=== PATIENT | female | born 1970 | race Caucasian/White ===

== ENCOUNTER 2018-08-31 09:02 | Emergency (ER) | payer SELFPAY ==
[2018-08-31] MEDS ORDERED: ONDANSETRON HCL IV 4 MG/2 ML VIAL IV ONE (09:36)
[2018-08-31] MEDS ORDERED: SODIUM CHLORIDE 0.9% 500 ML IV ONE (09:36)
--- NOTE | 2018-08-31 09:46 | Emergency Department Record ---
History of Present Illness - General Chief Complaint: Abdominal Pain Stated Complaint: CYST ON OVARIES Time Seen by Provider: 08/31/18 09:31 Source: Patient Mode of Arrival: Ambulatory Limitations: No limitations - History of Present Illness Initial Comments: The patient is here due to R lower AP for the last 8 hours. She states the onset was sudden when she was lying in bed. The patient states she has a long hx of similar issues due to ovarian cysts and this pain feels the same. She states she has needed to stay in the hospital overnight for it in the past. She also states she normally gets the pain just prior to her menses and she did start it yesterday but it seems to have stopped. The patient's only abdominal surgery is a BTL. Additionally she denies any vaginal discharge, dysuria, anorexia, or vomiting and is not sexually active. MD Complaint: Abdominal pain Onset/Timin -: Hour(s) Location: RLQ Radiation: None Migration to: No migration Severity: Moderate Severity scale (1-10): 7 Quality: Aching Consistency: Constant Improves With: Nothing Worsens With: Nothing - Related Data LMP (females 10-50): Current Patient : No Previous Rx's Medication Instructions Recorded Naproxen [Naprosyn] 500 mg PO BID #14 tablet. 08/31/18 Allergies Allergy/AdvReac Type Severity Reaction Status Date / Time diazepam [From Valium] AdvReac Severe cardiac Verified 08/31/18 11:26 arrest Travel Screening - Travel/Exposure Within Last 30 Days Have you traveled within the last 30 days?: No Review of Systems Constitutional: Denies: Chills, Fever Eyes: Denies: Eye discharge ENT: Denies: Congestion Respiratory: Denies: Cough, Dyspnea Past Medical History - SOCIAL HISTORY Smoking Status: Light tobacco smoker (<10/day) Alcohol Use: Occasional Drug Use: None - RESPIRATORY Hx Respiratory Disorders: No - CARDIOVASCULAR Hx Cardio Disorders: No - NEURO Hx Neuro Disorders: No - GI Hx GI Disorders: No - Hx Genitourinary Disorders: No Comment:: ovarian cysts - ENDOCRINE Hx Endocrine Disorders: No - MUSCULOSKELETAL Hx Musculoskeletal Disorders: No - PSYCH Hx Psych Problems: No - HEMATOLOGY/ONCOLOGY Hx Hematology/Oncology Disorders: No Family Medical History Any Significant Family History?: No Physical Exam - General General Appearance: Alert, Oriented x3, Cooperative, No acute distress - Head Head exam: Atraumatic, Normocephalic, Normal inspection - Eye Eye exam: Normal appearance, PERRL, EOMI - Neck Neck exam: Normal inspection, Full ROM. negative: Tenderness - Respiratory Respiratory exam: Normal lung sounds bilaterally. negative: Respiratory distress - Cardiovascular Cardiovascular Exam: Regular rate, Normal rhythm, Normal heart sounds - GI/Abdominal GI/Abdominal exam: Soft, Tenderness (There is mild to mod RLQ tenderness near the inguinal ligament.). negative: Distended, Rebound, Rigid - Extremities Extremities exam: Normal inspection, Full ROM, Normal capillary refill. negative: Tenderness Image of Full Body: 1 - Area of pain and tenderness. - Neurological Neurological exam: Alert. negative: Motor sensory deficit - Psychiatric Psychiatric exam: negative: Anxious Course Vital Signs 08/31/18 09:23 Temperature 97.8 F Pulse Rate 100 H Respiratory 20 Rate Blood Pressure 139/71 Pulse Ox 98 - Reevaluation(s) Reevaluation #1: The patient is doing better at this time. She is sleeping presently with no complaints of pain. We are waiting on her US report at this time. 08/31/18 12:19 Reevaluation #2: The patient is doing a lot better at this time. Her pain is now 90% resolved and she denies any nausea or back pain. I did explain to her that the lab tests were WNL's and the US did not demonstrate any acute pelvic pathology. She is to take naprosyn for pain at home and see her PCP later this week for recheck. 08/31/18 12:55 Medical Decision Making - Data Complexity MDM Data: Labs Ordered and/or Reviewed, X-Ray Ordered and/or Reviewed - Lab Data Result diagrams: 08/31/18 09:45 08/31/18 09:45 - Radiology Data Radiology results: Report reviewed (Pelvic US: Neg for torsion or free fluid. Dominant ovarian follicle L ovary, O/W neg.) Disposition Disposition: Discharge Clinical Impression: Pelvic pain Disposition: Home, Self-Care Condition: (2) Stable Instructions: Pelvic Pain in Women (ED) Additional Instructions: Please take the Naprosyn for pain and see your family doctor later this week for recheck. Please return to the ER tonight or in the morning for any worsening pain, fever, or vomiting. Prescriptions: Naproxen [Naprosyn] 500 mg PO BID #14 tablet.dr Forms: Patient Portal Access Time of Disposition: 12:58 Quality - Quality Measures Quality Measures: N/A - Blood Pressure Screening View Details: Yes Does Patient Have Any of the Following: No Blood Pressure Classification: Pre-Hypertensive BP Reading Systolic Measurement: 139 Diastolic Measurement: 71 Screening for High Blood Pressure: < Pre-Hypertensive BP, F/U Documented > [ G8950] Pre-Hypertensive Follow-up Interventions: Referral to alternative/primary care provider.
[2018-08-31 09:54] LABS: BASO % 0.5 % (0-6); EOS % 1.3 % (0-6); GRAN % 69.5 % (47-80); HEMATOCRIT 38.8 % (35.0-47.0); HEMOGLOBIN 12.4 gm/dl (11.6-16.0); LYMPH % 19.8 % (16-45); MEAN CELL VOLUME 95.1 fl (81-97); MEAN CORPUSCULAR HEMOGLOBIN 30.4 pg (27-33); MEAN PLATELET VOLUME 10.7 fl (7.4-10.4); MONO % 8.9 % (0-9); PLATELET COUNT 252 K/uL (130-400); RED BLOOD COUNT 4.08 M/uL (3.80-5.40); WHITE BLOOD COUNT W/O DIFF 10.8 K/uL (4.2-12.2)
[2018-08-31 09:55] LABS: URINE BILIRUBIN NEGATIVE (NEGATIVE); URINE BLOOD TRACE-I (NEGATIVE); URINE GLUCOSE (UA) NEGATIVE (NEGATIVE); URINE KETONE NEGATIVE (NEGATIVE); URINE LEUKOCYTE ESTERASE NEGATIVE (NEGATIVE); URINE NITRITE NEGATIVE (NEGATIVE); URINE PROTEIN NEGATIVE (NEGATIVE); URINE UROBILINOGEN 0.2 E.U./dL (0.20 - 1.00)
[2018-08-31 09:57] LABS: HCG,QUALITATIVE URINE NEGATIVE (NEGATIVE); URINE APPEARANCE CLEAR; URINE COLOR YELLOW
[2018-08-31] MEDS ORDERED: KETOROLAC 30 MG/ML VIAL IVP ONE (10:00)
[2018-08-31 10:03] LABS: BLOOD UREA NITROGEN 12 mg/dL (6-20)
[2018-08-31 10:04] LABS: CREATININE 0.8 mg/dL (0.5-0.9); EST GLOMERULAR FILTRATION RATE > 60 mL/min; URINE BACTERIA 2+; URINE EPITHELIAL CELLS >50 (FEW); URINE MUCUS HEAVY; URINE RBC 0 - 2 (NONE SEEN); URINE WBC 0 - 2 (0-2/hpf)
[2018-08-31 10:06] LABS: GLUCOSE,RANDOM 116 mg/dL (74-109)
[2018-08-31] MEDS ORDERED: HYDROMORPHONE HCL 2 MG/ML VIAL IVP ONE (11:21)
[2018-08-31] MEDS ORDERED: ONDANSETRON HCL IV 4 MG/2 ML VIAL IVP ONE ×2 (11:28→15:01)
--- NOTE | 2018-08-31 15:12 | Emergency Department Record ---
History of Present Illness - General Chief Complaint: Abdominal Pain Stated Complaint: CYST ON OVARIES Time Seen by Provider: 08/31/18 09:31 Source: Patient Mode of Arrival: Ambulatory Limitations: No limitations - History of Present Illness MD Complaint: Abdominal pain Onset/Timin -: Hour(s) Location: RLQ Radiation: None Migration to: No migration Severity: Moderate Severity scale (1-10): 7 Quality: Aching Consistency: Constant Improves With: Nothing Worsens With: Nothing - Related Data LMP (females 10-50): Current Patient : No Previous Rx's Medication Instructions Recorded Naproxen [Naprosyn] 500 mg PO BID #14 tablet.dr 08/31/18 Ondansetron [Zofran Odt] 4 mg SL .Q4-6H PRN #12 tab.rapdis 08/31/18 Allergies Allergy/AdvReac Type Severity Reaction Status Date / Time diazepam [From Valium] AdvReac Severe cardiac Verified 08/31/18 11:26 arrest Travel Screening - Travel/Exposure Within Last 30 Days Have you traveled within the last 30 days?: No Review of Systems Constitutional: Denies: Chills, Fever Eyes: Denies: Eye discharge ENT: Denies: Congestion Respiratory: Denies: Cough, Dyspnea Past Medical History - SOCIAL HISTORY Smoking Status: Light tobacco smoker (<10/day) Alcohol Use: Occasional Drug Use: None - RESPIRATORY Hx Respiratory Disorders: No - CARDIOVASCULAR Hx Cardio Disorders: No - NEURO Hx Neuro Disorders: No - GI Hx GI Disorders: No - Hx Genitourinary Disorders: No Comment:: ovarian cysts - ENDOCRINE Hx Endocrine Disorders: No - MUSCULOSKELETAL Hx Musculoskeletal Disorders: No - PSYCH Hx Psych Problems: No - HEMATOLOGY/ONCOLOGY Hx Hematology/Oncology Disorders: No Family Medical History Any Significant Family History?: No Physical Exam - General Limitations: No limitations Course Vital Signs 08/31/18 08/31/18 08/31/18 09:23 11:21 14:42 Temperature 97.8 F Pulse Rate 100 H Pulse Rate [ 85 78 Pulse Ox Probe] Respiratory 20 20 18 Rate Blood Pressure 139/71 Blood Pressure 118/62 109/69 [Left Arm] Pulse Ox 98 100 95 - Reevaluation(s) Reevaluation #1: The patient was waiting for a ride home for 2 hours and was asymptomatic. She then got up to get dressed to leave and became very nauseated and had the return of the sharp R lower AP. Due to the pain returning we will order an abdominal CT to complete the workup. 08/31/18 15:11 Reevaluation #2: The patient is doing much better at this time. Her nausea is much improved. She is ready for home. 08/31/18 16:25 Medical Decision Making - Data Complexity MDM Data: X-Ray Ordered and/or Reviewed - Lab Data Result diagrams: 08/31/18 09:45 08/31/18 09:45 Lab Results 08/31/18 08/31/18 08/31/18 Range/Units 09:45 09:45 09:45 WBC 10.8 (4.2-12.2) K/uL RBC 4.08 (3.80-5.40) M/uL Hgb 12.4 (11.6-16.0) gm/dl Hct 38.8 (35.0-47.0) % MCV 95.1 (81-97) fl MCH 30.4 (27-33) pg MCHC 32.0 (32-36) g/dl RDW 14.0 (11.5-14.5) % Plt Count 252 (130-400) K/uL MPV 10.7 H (7.4-10.4) fl Gran % 69.5 (47-80) % Lymphocytes % 19.8 (16-45) % Monocytes % 8.9 (0-9) % Eosinophils % 1.3 (0-6) % Basophils % 0.5 (0-6) % Sodium 142 (136-145) mmol/L Potassium 3.8 (3.4-4.5) mmol/L Chloride 106 (98-107) mmol/L Carbon Dioxide 23.0 (22-29) mmol/L Anion Gap 13.0 (7-16) BUN 12 (6-20) mg/dL Creatinine 0.8 (0.5-0.9) mg/dL Estimated GFR > 60 mL/min Random Glucose 116 H (74-109) mg/dL Calcium 8.5 L (8.6-10.0) mg/dL Urine Color Yellow Urine Appearance Clear Urine pH 6.0 (5.0-8.0) Ur Specific [place] >= 1.030 (1.002-1.030) Urine Protein Negative (NEGATIVE) Urine Glucose (UA) Negative (NEGATIVE) Urine Ketones Negative (NEGATIVE) Urine Blood Trace-i (NEGATIVE) Urine Nitrite Negative (NEGATIVE) Urine Bilirubin Negative (NEGATIVE) Urine Urobilinogen 0.2 (0.20 - 1.00) E.U./dL Ur Leukocyte Esterase Negative (NEGATIVE) Urine RBC 0 - 2 (NONE SEEN) Urine WBC 0 - 2 (0-2/hpf) Ur Epithelial Cells >50 (FEW) Urine Bacteria 2+ Urine Mucus Heavy Urine HCG, Qual Negative (NEGATIVE) - Radiology Data Radiology results: Report reviewed (Abd CT: Neg for any acute pathology.) Disposition Clinical Impression: Pelvic pain Disposition: Home, Self-Care Condition: (2) Stable Instructions: Pelvic Pain in Women (ED) Additional Instructions: Please take the Naprosyn for pain and see your family doctor later this week for recheck. Please return to the ER tonight or in the morning for any worsening pain, fever, or vomiting. Please use the Zofran for nausea if needed. Prescriptions: Naproxen [Naprosyn] 500 mg PO BID #14 tablet. Ondansetron [Zofran Odt] 4 mg SL .Q4-6H PRN #12 tab.rapdis PRN Reason: Nausea Forms: Patient Portal Access Quality - Quality Measures Quality Measures: N/A - Blood Pressure Screening View Details: Yes Does Patient Have Any of the Following: No Blood Pressure Classification: Normal BP Reading Systolic Measurement: 117 Diastolic Measurement: 74 Screening for High Blood Pressure: < Normal BP, F/U Not Required > [G8783]
[2018-08-31] MEDS ORDERED: PROMETHAZINE HCL 12.5 MG in 0.9 % SODIUM CHLORIDE 100ML 100 ML IVPB ONE (15:28)
--- NOTE | 2018-09-02 09:41 | ULTRASOUND REPORT ---
EXAM: PELVIC ULTRASOUND WITH TRANSVAGINAL EVALUATION HISTORY: SEVERE RIGHT LOWER QUADRANT ABDOMINAL PAIN. TECHNIQUE: Routine pelvic ultrasound with transvaginal evaluation was obtained. Comparison: Pelvic ultrasound 04/05/15. FINDINGS: The uterus measures 9.9 x 4.8 x 6.3 cm. The endometrium measures 1.5 cm in thickness. Cervical nabothian cysts are noted. Suggestion of small anterior fundal region intramural fibroids measuring up to 1.8 cm. The right ovary measures 2.7 x 1.6 x 2.4 cm. The left ovary measures 3.4 x 2.8 x 2.5 cm. Bilateral intraovarian arterial and venous waveforms are detected. Anechoic dominant left ovarian follicle measuring up to 2.4 cm. No significant free intrapelvic fluid seen. IMPRESSION: 1. NO SONOGRAPHIC EVIDENCE OF OVARIAN TORSION OR OTHER ACUTE INTRAPELVIC ABNORMALITY. 2. SUGGESTION OF SMALL UTERINE FIBROIDS. 3. ENDOMETRIAL THICKNESS NEAR UPPER NORMAL LIMITS MAY BE RELATED TO CYCLICAL CHANGE. JOB NUMBER: [id number] [facility]
== END 2018-08-31 16:38 | disposition home or self-care (01) ==
LOC: ER 09:02
DX: R10.2 Pelvic and perineal pain (principal); R10.31 Right lower quadrant pain; R11.0 Nausea; F17.210 Nicotine dependence, cigarettes, uncomplicated
CPT/HCPCS: 99284 ×2; 96376; 96365; 96375; 96361; 85025; 80048; 81001; 81025; 76856; 76830; 74176; J1885; J2405; J1170; J2550

== ENCOUNTER 2019-05-08 14:22 | Emergency (ER) | payer SELFPAY ==
[2019-05-08] MEDS ORDERED: ACETAMINOPHEN 500 MG TABLET PO ONE (14:33)
--- NOTE | 2019-05-08 14:45 | Emergency Department Record ---
History of Present Illness - General Chief complaint: Extremity Problem Stated complaint: R ANKLE INJURY Time Seen by Provider: 05/08/19 14:29 Source: Patient - History of Present Illness Initial comments: Patient was going down her steep steps to go to the bathroom in the night time and twisted her right ankle, about 14 hours ago now. She has been icing it, but it is still painful. She denies other injury. MD Complaint: Extremity pain - Related Data Home Medications Medication Instructions Recorded Confirmed Last Taken No Home Med [NO HOME MEDS] 05/08/19 05/08/19 Unknown Allergies Allergy/AdvReac Type Severity Reaction Status Date / Time diazepam [From Valium] AdvReac Severe cardiac Verified 05/08/19 14:31 arrest Review of Systems Reviewed: No additional complaints except as noted below Constitutional: Reports: As per HPI. Denies: Chills, Fever, Malaise, Night sweats, Weakness, Weight change Eyes: Reports: As per HPI. Denies: Eye discharge, Eye pain, Photophobia, Vision change ENT: Reports: As per HPI. Denies: Congestion, Dental pain, Ear pain, Epistaxis, Hearing loss, Throat pain Respiratory: Reports: As per HPI. Denies: Cough, Dyspnea, Hemoptysis, Stridor, Wheezes Cardiovascular: Reports: As per HPI. Denies: Arrhythmia, Chest pain, Dyspnea on exertion, Edema, Murmurs, Orthopnea, Palpitations, Paroxysmal nocturnal dyspnea, Rheumatic Fever, Syncope Endocrine: Reports: As per HPI. Denies: Fatigue, Heat or cold intolerance, Polydipsia, Polyuria Gastrointestinal: Reports: As per HPI. Denies: Abdominal pain, Constipation, Diarrhea, Hematemesis, Hematochezia, Melena, Nausea, Vomiting Genitourinary: Reports: As per HPI. Denies: Abnormal menses, Discharge, Dyspareunia, Dysuria, Frequency, Hematuria, Incontinence, Retention, Urgency Musculoskeletal: Reports: As per HPI. Denies: Arthralgia, Back pain, Gout, Joint swelling, Myalgia, Neck pain Skin: Reports: As per HPI. Denies: Bruising, Change in color, Change in hair/nails, Lesions, Pruritus, Rash Neurological: Reports: As per HPI. Denies: Abnormal gait, Confusion, Headache, Numbness, Paresthesias, Seizure, Tingling, Tremors, Vertigo, Weakness Psychiatric: Reports: As per HPI. Denies: Anxiety, Auditory hallucinations, Depression, Homicidal thoughts, Suicidal thoughts, Visual hallucinations Hematological/Lymphatic: Reports: As per HPI. Denies: Anemia, Blood Clots, Easy bleeding, Easy bruising, Swollen glands Past Medical History - SOCIAL HISTORY Smoking Status: Light tobacco smoker (<10/day) Drug Use: None - RESPIRATORY Hx Respiratory Disorders: No - CARDIOVASCULAR Hx Cardio Disorders: No - NEURO Hx Neuro Disorders: No - GI Hx GI Disorders: No - Hx Genitourinary Disorders: No Comment:: ovarian cysts - ENDOCRINE Hx Endocrine Disorders: No - MUSCULOSKELETAL Hx Musculoskeletal Disorders: No - PSYCH Hx Psych Problems: No - HEMATOLOGY/ONCOLOGY Hx Hematology/Oncology Disorders: No Physical Exam - General General Appearance: Alert, Oriented x3, Cooperative, No acute distress - Head Head exam: Normal inspection - Eye Eye exam: Normal appearance, PERRL, EOMI. negative: Conjunctival injection, Nystagmus Pupils: Normal accommodation - ENT ENT exam: Normal exam, Mucous membranes moist, Normal external ear exam Ear exam: Normal external inspection. negative: External canal tenderness Nasal Exam: Normal inspection. negative: Discharge, Sinus tenderness Mouth exam: Normal external inspection, Tongue normal Teeth exam: Normal inspection. negative: Dental caries Throat exam: Normal inspection. negative: Tonsillar erythema, Tonsillar exudate - Neck Neck exam: Normal inspection, Full ROM. negative: Tenderness - Respiratory Respiratory exam: negative: Respiratory distress - Cardiovascular Cardiovascular Exam: Regular rate, Normal rhythm - GI/Abdominal GI/Abdominal exam: Soft. negative: Tenderness - Rectal Rectal exam: Deferred - exam: Deferred - Extremities Extremities exam: Normal inspection, Full ROM, Normal capillary refill, Tenderness (tender lateral malleolus and medial malleolus on palpation with mild to moderate swelling. Foot and proximal fibula nontender. CMS intact distally.) - Back Back exam: Reports: Normal inspection, Full ROM. Denies: Muscle spasm, Rash noted, Tenderness - Neurological Neurological exam: Alert, Normal gait, Oriented X3, Reflexes normal - Psychiatric Psychiatric exam: Normal affect, Normal mood - Skin Skin exam: Dry, Intact, Normal color, Warm Course - Reevaluation(s) Reevaluation #1: Patient states that she has had prior surgery on this ankle to fix a peroneal tendon when she lived in [place] several years ago. 05/08/19 15:07 Reevaluation #2: Discussed with Dr. Ragsdale emergency attending at [facility] Emergency Department who accepts patient in transfer EDept to EDept for orthopedic referral care. 05/08/19 15:43 Medical Decision Making - Management Options [facility] Management: Additional Work-up Planned (e.g. ADM/Transfer/OP Study) (To [facility] for Dr. Ragsdale Emergency Physician and orthopedic referral care) - Data Complexity MDM Data: X-Ray Ordered and/or Reviewed (Right Ankle: Closed bimalleolar fracture with displacement of the mortis, with avulsion vs. calcification of distal tip of medial malleolus) Disposition Disposition: Transfer Clinical Impression: Displaced bimalleolar fracture of right ankle Qualifiers: Encounter type: initial encounter Fracture type: closed Qualified Code(s): S82.841A - Displaced bimalleolar fracture of right lower leg, initial encounter for closed fracture Disposition: Acute Care Hospital Transfer Transfer To: [facility] Emergency Department Dr. Ragsdale for orthopedic referral Reason For Transfer: Orthopedic care for displaced ankle fracture Accepting Physician: Dr. Ragsdale Edept. Time Discussed w/Accepting Physician: 15:48 Condition: (2) Stable Forms: Patient Portal Access Quality - Quality Measures Quality Measures: N/A - Blood Pressure Screening Does Patient Have Any of the Following: No Blood Pressure Classification: Hypertensive Reading Systolic Measurement: 125 Diastolic Measurement: 93 Screening for High Blood Pressure: < Normal BP, F/U Not Required > [G8783]
[2019-05-08] MEDS ORDERED: MORPHINE SULFATE 10MG/1ML **1ML VIAL IVP ONE (15:53)
[2019-05-08] MEDS ORDERED: ONDANSETRON HCL IV 4 MG/2 ML VIAL IVP ONE (15:53)
--- NOTE | 2019-05-08 22:26 | RADIOLOGY REPORT ---
EXAM: ANKLE RIGHT 3 VIEWS HISTORY: FELL DOWN STEPS 12 HOURS AGO, BRUISING RIGHT ANKLE. TECHNIQUE: Three views right ankle. COMPARISON: None. FINDINGS: There is an oblique mildly displaced acute fracture of the distal fibula. There is disruption of the ankle mortise with lateral subluxation of the talus relative to the distal tibia. There is a bone fragment interposed between the medial aspect of the talus and the medial malleolus. This could originate from the medial talus rather than the medial malleolus. No definite posterior tibial fracture seen. Bones and joints otherwise unremarkable. There is soft tissue swelling. IMPRESSION: 1. THERE IS A MILDLY DISPLACED ACUTE FRACTURE OF THE DISTAL RIGHT FIBULA. 2. THERE IS DISRUPTION OF THE ANKLE MORTISE WITH WIDENING OF THE MEDIAL ASPECT OF THE TIBIOTALAR SPACE. 3. THERE IS AN ACUTE FRACTURE FRAGMENT IDENTIFIED INTERPOSED BETWEEN THE MEDIAL MALLEOLUS AND MEDIAL ASPECT OF THE TALUS. THIS COULD ORIGINATE FROM THE MEDIAL TALUS RATHER THAN THE MEDIAL MALLEOLUS. 4. OTHERWISE UNREMARKABLE. JOB NUMBER: [id number] [facility]
== END 2019-05-08 16:55 | disposition short-term general hospital (02) ==
LOC: ER 14:22
DX: S82.841A Displaced bimalleolar fracture of right lower leg, initial encounter for closed fracture (principal); X50.1XXA Overexertion from prolonged static or awkward postures, initial encounter; Y92.002 Bathroom of unspecified non-institutional (private) residence as the place of occurrence of the external cause; F17.210 Nicotine dependence, cigarettes, uncomplicated
CPT/HCPCS: 29515; 99285 ×2; 96374; 96375; 73610; J2405; J2270

== ENCOUNTER 2019-12-16 12:09 | Day surgery (SDC) | payer MEDICAID ==
[2019-12-16] MEDS ORDERED: FENTANYL PF 100MCG/2ML VIAL IV ONE (12:10)
[2019-12-16] MEDS ORDERED: PROPOFOL 10 MG/ML VIAL IV ONE (12:10)
[2019-12-16] MEDS ORDERED: LIDOCAINE 2% MDV (20MG/ML) 20ML VIAL IV ONE (12:10)
--- NOTE | 2019-12-24 10:51 | Operative Note ---
OPERATION: 1. ESOPHAGOGASTRODUODENOSCOPY with biopsy. 2. COLONOSCOPY. PREOPERATIVE DIAGNOSES: 1. Dysphagia. 2. Colon cancer screening. POSTOPERATIVE DIAGNOSES: 1. Hiatal hernia. 2. GERD, rule out short-segment Jorge's. 3. Normal colonoscopy. PREPARATION QUALITY: Good. ESTIMATED BLOOD LOSS: Minimum. SPECIMENS: GE junction. PROCEDURE: After informed consent was obtained from the patient, she was placed in the left lateral decubitus position in the endoscopy suite, sedated and monitored by the department of anesthesia. A well-lubricated [id number] gastroscope was placed in the posterior oropharynx under direct visualization and passed to the proximal esophagus. The endoscope was advanced through the proximal, mid, and distal esophagus. The GE junction was irregular with erythematous streak. No ulcers, erosions, strictures, or varices were otherwise seen. The gastric body, antrum, pylorus, duodenal bulb and sweep were unremarkable. J-turn views of the proximal stomach revealed a small hiatal hernia. The endoscope was straightened. GE junction biopsies were obtained. No excessive bleeding was noted. The endoscope was removed from the patient with no new findings or abnormalities identified. Digital rectal exam was unrevealing. A well-lubricated [id number] colonoscope was inserted into the rectum and advanced to the cecum. The cecum, cecal bulb, ileocecal valve, appendiceal orifice, ascending colon, transverse colon, descending colon, sigmoid colon, and rectum were free of inflammatory changes, mass lesions, or polyps. Preparation quality was good. The rectum was unremarkable in forward as well as J-turn views. The endoscope was straightened, the rectal ampulla deflated, and the endoscope was removed. RECOMMENDATIONS: The patient should continue her current medical program. I recommend a repeat colonoscopy in 10 years. Further upward GI surveillance will be based on tissue histology. As always, thank you for allowing me to participate in the healthcare of your patients. JOSE
== END 2019-12-16 14:40 | disposition home or self-care (01) ==
LOC: HOP 12:09
PROVIDERS: ATTEND Internal Medicine Gastroenterology
DX: Z12.11 Encounter for screening for malignant neoplasm of colon (principal); R13.10 Dysphagia, unspecified; K44.9 Diaphragmatic hernia without obstruction or gangrene; F41.9 Anxiety disorder, unspecified
CPT/HCPCS: 00813; 43239; G0121